=== PATIENT | female | born 1955 | race Caucasian/White ===

== ENCOUNTER 2018-03-19 08:00 | Outpatient (CLI) | payer OTHER ==
[2014-10-19 09:55] VITALS: BMI 25.3
[~2018-03-19 08:00] MED LIST: ASPIRIN EC81 M1 PO; CINNAMON500 MG PO; ELIQUIS2.5 MG PO; FISH OIL 1,0001 CA1 PO; FISH OIL 500 MG1 CAP PO; GLUCOSAMINE & C1 CAP PO; MS CONTIN15 MG PO; PERCOCET 5-3251 TAB PO; TYLENOL W/CODEI1 TAB PO
== END 2018-03-19 09:00 | disposition home or self-care (01) ==
LOC: D.MAMMO 08:00
DX: Z12.31 Encounter for screening mammogram for malignant neoplasm of breast (principal)

== ENCOUNTER 2019-03-30 13:30 | Outpatient (CLI) | payer OTHER ==
[2014-10-19 09:55] VITALS: BMI 25.3
== END 2019-03-30 14:00 | disposition home or self-care (01) ==
LOC: D.MAMMO 13:30
PROVIDERS: ATTEND Family Medicine
DX: Z12.31 Encounter for screening mammogram for malignant neoplasm of breast (principal)

== ENCOUNTER 2019-04-26 08:00 | Outpatient (CLI) | payer OTHER ==
[2014-10-19 09:55] VITALS: BMI 25.3
== END 2019-04-26 23:59 | disposition home or self-care (01) ==
LOC: D.MAMMO 08:00
PROVIDERS: ATTEND Family Medicine
DX: R92.8 Other abnormal and inconclusive findings on diagnostic imaging of breast (principal)